=== PATIENT | male | born 1990 | race Caucasian/White ===

== ENCOUNTER 2024-11-21 09:52 | Emergency (ER) | payer OTHER ==
[~2024-11-21] VITALS: Ht 172.7 cm; Wt 64.4 kg
[2024-11-21] MEDS: ONDANSETRON 4 MG/2 ML VIAL IV ONE (10:25)
[2024-11-21] MEDS: HYDROMORPHONE 1 MG/1 ML DISP.SYRIN IV ONE (10:25)
[2024-11-21] MEDS: diphenhydrAMINE 50 MG/1 ML VIAL IV ONE (10:25)
[2024-11-21] MEDS ORDERED: CHLORDIAZEPOXIDE HCL 25 MG CAPSULE ONE (10:27)
[2024-11-21] MEDS ORDERED: LORAZEPAM 0.5 MG TABLET ONE (10:27)
[2024-11-21] MEDS: LORAZEPAM 0.5 MG TABLET PO ONE (10:31)
[2024-11-21] MEDS: CHLORDIAZEPOXIDE HCL 25 MG CAPSULE PO ONE (10:31)
[2024-11-21 13:23] LABS: *BILIRUBIN,URIN NEGATIVE (NEGATIVE); *BLOOD, URINE NEGATIVE (NEGATIVE); *CLARITY,URINE CLEAR (CLEAR); *COLOR,URINE YELLOW (YELLOW); *KETONES,URINE TRACE (NEGATIVE); *PROTEIN,URINE NEGATIVE (NEGATIVE); *UROBILINOGEN,URINE 0.2 E.U./dl (NORMAL); LEUKOCYTE ESTERASE ,URINE NEGATIVE (NEGATIVE); NITRITE, URINE NEGATIVE (NEGATIVE); UGLUCOSE NEGATIVE (NEGATIVE)
[2024-11-21 13:36] LABS: BACTERIA,URINE FEW /HPF (NONE SEEN); WBC,URINE 0-3 /HPF (0-3)
[2024-11-21] MEDS ORDERED: CHLO25CA22 PO (14:28)
[2024-11-21 14:35] VITALS: BP 148/100; TEMP 98.1; O2SAT 99
[2024-11-21 16:51] LABS: *AMPHETAMINE, URINE NEGATIVE (NEGATIVE); *BENZODIAZEPINE, URINE NEGATIVE (NEGATIVE); *CANNABINOID, URINE NEGATIVE (NEGATIVE); *COCCAINE, URINE NEGATIVE (NEGATIVE); *OPIATE, URINE NEGATIVE (NEGATIVE); *PHENCYCLIDINE SCREEN,URINE NEGATIVE (NEGATIVE); FENTANYL, URINE NEGATIVE (NEGATIVE)
[2024-11-21 16:53] LABS: *BARBITURATE, URINE NEGATIVE (NEGATIVE)
== END 2024-11-21 14:36 | disposition home or self-care (01) ==
LOC: ER 09:52
DX: F10.239 Alcohol dependence with withdrawal, unspecified (principal); F41.9 Anxiety disorder, unspecified; R07.9 Chest pain, unspecified; Y90.9 Presence of alcohol in blood, level not specified
CPT/HCPCS: A4606; A4663